=== PATIENT | male | born 2000 | race African-American/Black ===

== ENCOUNTER 2021-04-21 21:13 | Emergency (ER) | payer OTHER, SELFPAY ==
[2021-04-21 21:20] VITALS: BP 144/69; PULSE 80; RESP 16; TEMP 36.7; O2SAT 98; BMI 27.8
[2021-04-21 21:35] LABS: Glucose Urine UA NEG (NEG); Leukocyte Esterase Urine 1+ (NEG); Nitrite Urine NEG (NEG); UACC Culture Trigger YES; Urine Blood NEG (NEG); Urine Ketones NEG (NEG); Urine Protein NEG (NEG-TRACE)
[2021-04-21 21:37] LABS: Appearance Urine CLEAR; Color Urine YELLOW
--- NOTE | 2021-04-21 21:49 | ED_ITS ---
HPI - Male Genitourinary General Chief complaint: Urogenital-Male Stated complaint: DIFF URINATING Time Seen by Provider: 04/21/21 21:49 History of Present Illness HPI Narrative: 20-year-old male presents today with having pain in his penis worse with urinating. Patient is sexually active did not use protection. He got a text notifying him that his partner may have STD. Patient denies any fever chills. No systemic complaints. No testicular pain. Patient from home. Related Data Previous Rx's Medication Instructions Recorded doxycycline hyclate 100 mg PO BID 7 Days #14 cap 04/21/21 Allergies Allergy/AdvReac Type Severity Reaction Status Date / Time No Known Allergies Allergy Verified 04/21/21 21:21 Review of Systems Review of Systems: Positive pain on urination. Positive frequency Yes all other systems are reviewed and are negative [facility] Past Medical History Attestation statement: The following information was validated with the patient. Medical History Patient denies significant medical history Social History Social History Advance Directives: No Advance Directives Information Provided: Yes Physical Exam Vital Signs: Vital Signs: Last Vital Signs Temp 98.0 F 04/21/21 21:20 Pulse 80 04/21/21 21:20 Resp 16 04/21/21 21:20 BP 144/69 H 04/21/21 21:20 Pulse Ox 98 04/21/21 21:20 Body Mass Index 27.8 Appearance: Alert. Oriented X3. No acute distress. Eyes: Pupils equal, round and reactive to light. ENT: Pharynx normal. Neck: Normal inspection. Neck supple. No lymph nodes noted. No crepitus CVS: Normal heart rate and rhythm. Pulses normal. Normal S1 and S2 Respiratory: No respiratory distress. Breath sounds normal. No Wheezing. No rales Abdomen: Soft and nontender. No rigidity. No distention. good BS x4 Skin: Skin warm and dry. Normal skin color. Normal skin turgor. Extremities: No lower extremity edema. Neurovascular intact to all extremities. No Lacerations. No Rash Neuro: Oriented X 3. No motor deficit. No sensory deficit. Moving all extermities. No slurred speech MDM - Male Genitourinary MDM Narrative Medical decision making narrative: Patient's postvoid bladder scan was grossly negative. Positive dysuria. Will send off a GC chlamydia. Will treat patient with Rocephin 500 mg IM. Will addition give doxycycline for 1 week. Close follow-up on an outpatient basis. In stable condition. Differential Diagnosis Differential diagnosis: Likely urethritis and epididymitis Medical Records Attestation: I reviewed the patient's medical records. Lab Data Labs: Lab Results 04/21/21 Range/Units 21:25 Urine Color YELLOW Urine Appearance CLEAR Urine pH 7.0 (5.0-8.0) Ur Specific [place] 1.010 (1.005-1.025) Urine Protein NEG (NEG-TRACE) MG/DL Urine Glucose (UA) NEG (NEG) MG/DL Urine Ketones NEG (NEG) MG/DL Urine Blood NEG (NEG) Urine Nitrite NEG (NEG) Ur Leukocyte Esterase 1+ H (NEG) Discharge Plan Discharge Clinical Impression: Urethritis Patient Disposition: Home, Self-Care Instructions: Sexually Transmitted Diseases (ED), Safe Sex Practices for Adolescents (ED) Prescriptions: New doxycycline hyclate 100 mg capsule 100 mg PO BID 7 Days Qty: 14 RF: 0 Referrals: Physician,None [Primary Care Provider] - 2 days (Please get your partner tested and treated. Your given Rocephin and doxycycline today)
[2021-04-21 21:50] LABS: Bacteria Urine 1+ /LPF; Squamous Epithelial Cell Urine 1+ /LPF
[2021-04-21] MEDS: cefTRIAXone sodium 500 MG, Lidocaine HCl 1 % MPF 1 ML IM (22:12)
[2021-04-22 13:04] LABS: CT PCR DETECTED (Not Detect.); NG PCR DETECTED (Not Detect.)
== END 2021-04-21 22:21 | disposition home or self-care (01) ==
PROVIDERS: Emergency Provider Emergency Medicine Emergency Medical Services
DX: N34.2 Other urethritis (principal); Z20.2 Contact with and (suspected) exposure to infections with a predominantly sexual mode of transmission
CPT/HCPCS: 81001; 81003; 87086; 87491; 87591; 96372; 99283; 99284; J0696

== ENCOUNTER 2021-09-28 14:09 | Emergency (ER) | payer OTHER, SELFPAY ==
[2021-09-28 14:25] VITALS: BP 136/85; PULSE 87; RESP 18; TEMP 36.3; O2SAT 98; BMI 27.8
--- NOTE | 2021-09-28 14:42 | ED.MALEGU ---
HPI - Male Genitourinary General Chief complaint: Urogenital-Male Stated complaint: STD test Time Seen by Provider: 09/28/21 14:42 Source: patient Mode of arrival: ambulatory Limitations: no limitations History of Present Illness HPI Narrative: 21-year-old male previously healthy here with reports of exposure to chlamydia. Patient tells me his sexual partner called him this morning and told him she is positive for chlamydia. He has no symptoms. Related Data Previous Rx's Medication Instructions Recorded doxycycline hyclate 100 mg capsule 100 mg PO BID 7 Days #14 cap 04/21/21 Allergies Allergy/AdvReac Type Severity Reaction Status Date / Time No Known Allergies Allergy Verified 09/28/21 14:24 Review of Systems Review of Systems: Yes all other systems are reviewed and are negative Constitutional: Constitutional: Reports no additional constitutional complaints, Denies body ache(s), Denies chills, Denies fever(s), Denies headache(s) and Denies weakness Eyes: Eyes: Reports no additional eye complaints and Denies change in vision ENT: Reports system reviewed and no additional complaints, except as documented, Denies dizziness, Denies headache(s), Denies nasal congestion, Denies nasal discharge and Denies neck pain Cardiovascular: Cardiovascular: Reports no additional cardiovascular complaints, Denies chest pain, Denies leg edema and Denies dyspnea Respiratory: Respiratory: Reports no additional respiratory complaints, Denies cough and Denies dyspnea Gastrointestinal: Gastrointestinal: Reports no additional gastrointestinal complaints, Denies abdominal pain, Denies diarrhea, Denies nausea and Denies vomiting Genitourinary: Genitourinary: Denies penile discharge, Denies testicular pain and Denies urinary incontinence Musculoskeletal: Musculoskeletal: Reports no additional musculoskeletal complaints, Denies back pain, Denies arthralgias, Denies joint swelling, Denies neck pain, Denies numbness and Denies tingling Integumentary/Breasts: Skin/Breast: Reports system reviewed and no additional complaints, except as docu and Denies rash Neurologic: Reports system reviewed and no additional complaints, except as documented, Denies Abnormal speech present, Denies dizziness, Denies headache(s), Denies numbness, Denies tingling and Denies weakness PMFSH Past Medical History Attestation statement: The following information was validated with the patient. Source: old records reviewed and nursing notes reviewed Medical History Patient denies significant medical history Social History Social History Advance Directives: No Advance Directives Information Provided: No Physical Exam Vital Signs: Vital Signs: Last Vital Signs Temp 97.4 F 09/28/21 14:25 Pulse 87 09/28/21 14:25 Resp 18 09/28/21 14:25 BP 136/85 09/28/21 14:25 Pulse Ox 98 09/28/21 14:25 BMI result Body Mass Index 27.8 Const: General: cooperative, healthy appearing, comfortable and no acute distress Orientation/consciousness: patient oriented x3 Limitations: no limitations HENMT: Head: Yes normal to inspection Ears: hearing grossly normal bilaterally General nose exam: Normal external nose present Face and sinus: Yes normal facial exam Mouth: Normal oral and palatal mucosa present Throat: Yes posterior oropharynx normal Eyes: General: appearance normal, both eyes and all related structures Pupils: Equal, round and reactive pupils present Neck: Neck: Yes normal visual inspection Chest: Chest palpation & inspection: normal inspection of the chest Resp: Effort & Inspection: normal respiratory effort Auscultation: clear to auscultation bilaterally Cardio: Rate: regular rate Rhythm: regular rhythm Peripheral pulses: Peripheral pulses 2+ throughout GI: Inspection: Yes normal to inspection Palpation (GI): Soft to palpation and nontender Auscultation: normal bowel sounds : Other: Deferred Back/Spine/Pelvis: Thoracic/Lumbar Spine: thoracic and lumbar spine normal to inspection Skin: General skin exam: no rashes or lesions noted Neuro: General: patient oriented x3, no focal motor deficits and normal sensation to monofilament Cranial nerves: Yes Equal, round and reactive pupils present Cognition (Neuro): normal cognition Speech: No Abnormal speech present Gait exam (Neuro): Normal gait present Motor exam (neuro): 5/5 motor strength present throughout Extrem: General: Yes normal to inspection Course Course Course Narrative: 21-year-old male here asymptomatic after exposure to chlamydia. Will send testing for gonorrhea and chlamydia. Patient treated prophylactically with ceftriaxone 500 mg IM and azithromycin 1 g p.o.. Reviewed worrisome signs and symptoms of when to return to the emergency department. Comfortable discharge home. [facility] - Male Genitourinary Medical Records Attestation: I reviewed the patient's medical records. Lab Data Attestation: I reviewed the patient's lab results. Labs: Lab Results 09/28/21 Range/Units 14:36 Urine Color YELLOW Urine Appearance CLEAR Urine pH 7.0 (5.0-8.0) Ur Specific [place] 1.020 (1.005-1.025) Urine Protein NEG (NEG-TRACE) MG/DL Urine Glucose (UA) NEG (NEG) MG/DL Urine Ketones NEG (NEG) MG/DL Urine Blood NEG (NEG) Urine Nitrite NEG (NEG) Ur Leukocyte Esterase NEG (NEG) Discharge Plan Discharge Clinical Impression: Concern about STD in male without diagnosis Patient Disposition: Home, Self-Care Instructions: Sexually Transmitted Diseases (ED) Additional Instructions: Your tested for gonorrhea and chlamydia. You told me that your partner has chlamydia so you received treatment of an injection of an antibiotic and a 1 time dose of oral antibiotics here We will call you tomorrow if your test is positive If your test is positive you should abstain from sexual intercourse for 7 days. Then get retested at [facility] for STDs Use condoms Prescriptions: No Action doxycycline hyclate 100 mg capsule 100 mg PO BID 7 Days Qty: 14 RF: 0 Referrals: Physician,None [Primary Care Provider] - 2 days Interventions: ED Discharge Assessment Last Done: 09/28/21 15:06 Discharge Date/Time: 09/28/21 15:06
[2021-09-28 14:45] LABS: Appearance Urine CLEAR; Color Urine YELLOW; Glucose Urine UA NEG (NEG); Leukocyte Esterase Urine NEG (NEG); Nitrite Urine NEG (NEG); Urine Blood NEG (NEG); Urine Ketones NEG (NEG); Urine Protein NEG (NEG-TRACE)
[2021-09-28] MEDS: Azithromycin 500 MG TABLET 1000 MG PO (14:58)
[2021-09-28] MEDS: cefTRIAXone sodium 500 MG, Lidocaine HCl 1 % MPF 1 ML IM (14:59)
[2021-09-30 11:40] LABS: CT PCR DETECTED (Not Detect.); NG PCR NOT DETECTED (Not Detect.)
== END 2021-09-28 15:06 | disposition home or self-care (01) ==
LOC: HO.ED 14:53
PROVIDERS: Emergency Provider Emergency Medicine
DX: Z20.2 Contact with and (suspected) exposure to infections with a predominantly sexual mode of transmission (principal); Z79.899 Other long term (current) drug therapy
CPT/HCPCS: 81003; 87491; 87591; 96372; 99283; 99284; J0696

== ENCOUNTER 2021-12-13 13:52 | Emergency (ER) | payer OTHER, SELFPAY ==
[2021-12-13 14:25] VITALS: BP 132/65; PULSE 83; RESP 18; TEMP 37; O2SAT 98; BMI 30.7
[2021-12-13 14:31] LABS: Appearance Urine HAZY; Color Urine YELLOW; Glucose Urine UA NEG (NEG); Leukocyte Esterase Urine NEG (NEG); Nitrite Urine NEG (NEG); Urine Blood NEG (NEG); Urine Ketones NEG (NEG); Urine Protein NEG (NEG-TRACE)
--- NOTE | 2021-12-13 14:31 | ED.MALEGU ---
HPI - Male Genitourinary General Chief complaint: Urogenital-Male Stated complaint: STD CHECK Time Seen by Provider: 12/13/21 14:31 Source: patient Limitations: no limitations History of Present Illness HPI Narrative: Patient presents to the ER requesting to be tested for chlamydia and gonorrhea. Patient denies any symptoms at this time patient has had chlamydia and gonorrhea in the past. Patient was tested positive for chlamydia in 2020September 28. Patient repeats he has no symptoms and does not want to be treated at this time just wants to be tested. Patient has no other complaints at this time. Patient encouraged to practice safe sex Related Data Previous Rx's Medication Instructions Recorded doxycycline hyclate 100 mg capsule 100 mg PO BID 7 Days #14 cap 04/21/21 doxycycline hyclate 100 mg capsule 100 mg PO BID #20 cap 09/28/21 Allergies Allergy/AdvReac Type Severity Reaction Status Date / Time No Known Allergies Allergy Verified 12/13/21 14:25 Review of Systems Constitutional: Constitutional: Denies chills, Denies fatigue and Denies fever(s) ENT: Denies sore throat Gastrointestinal: Gastrointestinal: Denies diarrhea, Denies nausea and Denies vomiting Genitourinary: Comments: No penile discharge no dysuria Musculoskeletal: Musculoskeletal: Denies back pain Endocrine: Endocrine: Denies fatigue PMFSH Past Medical History Medical History Patient denies significant medical history Social History Social History Advance Directives: No Advance Directives Information Provided: No Physical Exam Vital Signs: Vital Signs: Last Vital Signs Temp 98.6 F 12/13/21 14:25 Pulse 83 12/13/21 14:25 Resp 18 12/13/21 14:25 BP 132/65 12/13/21 14:25 Pulse Ox 98 12/13/21 14:25 BMI result Body Mass Index 30.7 vital signs have been reviewed as normal and appeared to be correct. Blood pressure normal. Heart rate normal. Respiration rate normal. Temperature normal. Oxygen saturation normal. Appearance: Alert. Oriented X3. No acute distress. Head: Normal external exam. Normocephalic. Atraumatic. Eyes: PERRLA. EOMI. Conjunctiva and sclera normal. Eyelids normal. ENT: Pharynx normal. Uvula midline. Moist mucous membranes. No trismus noted. No drooling noted. No muffled voice noted. Abdomen: Soft nontender no rebound or guarding positive bowel sounds Back: Full range of motion noted. Skin: Skin warm and dry. Extremities: Ambulatory moving all extremities : Exam refused Neuro: Oriented X 3. No motor deficit. No sensory deficit. Reflexes normal. Course Course Course Narrative: Chlamydia Gonorrhea Cystitis UA sent for chlamydia and gonorrhea patient informed he will be called only positive results patient does not want any treatment at this time is he has no symptoms. MDM - Male Genitourinary Lab Data Labs: Lab Results 12/13/21 Range/Units 14:15 Urine Color YELLOW Urine Appearance HAZY Urine pH 7.0 (5.0-8.0) Ur Specific [place] 1.020 (1.005-1.025) Urine Protein NEG (NEG-TRACE) MG/DL Urine Glucose (UA) NEG (NEG) MG/DL Urine Ketones NEG (NEG) MG/DL Urine Blood NEG (NEG) Urine Nitrite NEG (NEG) Ur Leukocyte Esterase NEG (NEG) Discharge Plan Discharge Clinical Impression: Concern about STD in male without diagnosis Patient Disposition: Home, Self-Care Instructions: Safe Sex Practices (ED) Additional Instructions: They will call you with positive results Prescriptions: No Action doxycycline hyclate 100 mg capsule 100 mg PO BID 7 Days Qty: 14 0RF doxycycline hyclate 100 mg capsule 100 mg PO BID Qty: 20 0RF
--- NOTE | 2021-12-13 14:39 | PC.NURSE ---
provider into assess pt. pt refusing any treatment at this time. Reviewed discharge instructions.
[2021-12-13 17:16] LABS: CT PCR NOT DETECTED (Not Detect.); NG PCR NOT DETECTED (Not Detect.)
== END 2021-12-13 14:46 | disposition home or self-care (01) ==
LOC: HO.ED 14:37
PROVIDERS: Emergency Provider Emergency Medicine
DX: Z20.2 Contact with and (suspected) exposure to infections with a predominantly sexual mode of transmission (principal)
CPT/HCPCS: 81003; 87491; 87591; 99282; 99283

== ENCOUNTER 2022-09-12 14:49 | Outpatient (REF) | payer OTHER, SELFPAY ==
[2022-09-12 15:21] LABS: COVID-19 Test Positive (Negative); IDNOW Serial# 9DB6401D
== END 2022-09-12 14:50 | disposition home or self-care (01) ==
LOC: HO.LAB 14:49
PROVIDERS: Visit Provider Internal Medicine
DX: Z20.822 Contact with and (suspected) exposure to COVID-19 (principal)
CPT/HCPCS: 87635; C9803

== ENCOUNTER 2023-11-12 17:17 | Emergency (ER) | payer OTHER, SELFPAY ==
[2023-11-12 18:02] VITALS: BP 0/0; PULSE 84; RESP 16; TEMP 36.6; O2SAT 98
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
--- OUTSIDE RECORDS SUMMARY | 2023-11-12 18:13 | XMS_ITS | Continuity of Care Document ---
Author Name Unknown Organization [facility] Address [address] [place] [address]- Care Team Providers Care Lock Up Worker Name Role Phone Not on Staff, PCP Primary Care Physician Unavail able Encounter 11/21/20 - 12/12/20 [facility] [address] [place] [address]- Discharge Disposition: GOALS MET Allergies, Adverse Reactions, Alerts Substance Reaction Severity [...] opioid drug. Start Date: 10/07/20 Status: Ordered Flomax 0.4 mg oral capsule 0.4 mg, 1, capsule, By Mouth, 2 times a day, # 60 capsule, Refills 0, Tot. Refills 0, Maintenance, 10/07/20 8:24:00 EST, Print Requisition, Partial fill upon patient request if the prescription is for a schedule II opioid drug. Start Date: 10/07/20 Status: Ordered Problem List Condition Effective Dates Status Health Status Inform ant Attention deficit hyperactiv ity disorder(Confirmed) Active Behavior management problem(Confirmed) Active Social History Social History Type Response Smoking Status Current every day susy escobar; Tobacco user in household: Yes; Type: Cigarettes; Other: mother smokes; entered on: 02/06/17 Sex
--- OUTSIDE RECORDS SUMMARY | 2023-11-12 18:13 | XMS_ITS | Continuity of Care Document ---
Author Name Unknown Organization [facility] ter Address [address] [place] [address]- Care Team Providers Care Shoe Repairer Helper Name Role Phone Not on Staff, PCP Primary Care Physician Unavail able [facility] Date(s): 10/05/20 - 11/04/[address] [address]- Attending Physician: Not on Staff, Attending MD Admitting Physician: Not on Staff, Admitting MD Referring Physician: Not on Staff, Referring [...]
--- OUTSIDE RECORDS SUMMARY | 2023-11-12 18:13 | XMS_ITS | Continuity of Care Document ---
Author Name Unknown Organization [facility] Address [address] [place] [address]- Care Team Providers Care Senior Power Plant Operator Name Role Phone Not on Staff, PCP Primary Care Physician Unavail able Encounter [facility] Date(s): 06/22/20 - 06/22/[address] [address]- [facility] Discharge Disposition: A-D/C Walkout Attending Physician: Not on Staff, Attending MD [...] CR Capsule Start Date: 09/18/17 Status: Ordered Problem List Condition Effective Dates Status Health Status Inform ant Attention deficit hyperactiv ity disorder(Confirmed) Active Behavior management problem(Confirmed) Active Vital Signs Most recent to oldest [Reference Range]: 1 2 Oxygen Saturation [94-100 %] 100 % (06/22/20 6:05 PM) 98 % (06/22/20 5:53 PM) Pulse Rate [55-90 bpm] 76 bpm (06/22/20 6:05 PM) 81 bpm (06/22/20 5:53 PM) Blood Pressure [90-138/55-84 mm Hg] 132/ 64mm Hg (06/22/20 6:05 PM) Respiratory Rate [16-30 br/min] 16 br/mi n (06/22/20 6:05 PM) Temperature [96.8-100.4 DegF] 98.0 DegF (06/22/20 6:05 PM) Mode of Delivery (Oxygen) Room air (06/22/20 6:05 PM) Room air (06/22/20 5:53 PM) Blood pressure sites Arm, left (06/22/20 6:05 PM) Temperature Route Oral (06/22/20 6:05 PM) Social History Social History Type Response Smoking Status Current every day susy escobar; Tobacco user in household: Yes; Type: Cigarettes; Other: mother smokes; entered on: 02/06/17 Sex
--- OUTSIDE RECORDS SUMMARY | 2023-11-12 18:13 | XMS_ITS | Continuity of Care Document ---
Author Name Unknown Organization [facility] ter Address [address] [place] [address]- Care Team Providers Care Information Manager Name Role Phone Not on Staff, PCP Primary Care Physician Unavail able [facility]counter [facility] Date(s): 02/07/20 - 02/07/[address] [address]- [facility] Encounter Diagnosis AP (abdominal pain)(Final) - 02/07/20 Possible exposure to STD(Final) - 02/07/20 Discharge Disposition: A-D/C Home Attending Physician: Justyn Medley DO Admitting Physician: Justyn Medley DO Referring Physician: Not on Staff, Referring MD [...] to oldest [Reference Range]: 1 2 3 Oxygen Saturation [94-100 %] 100 % (02/07/20 6:36 PM) 98 % (02/07/20 4:34 PM) 98 % (02/07/20 4:31 PM) Pulse Rate [55-90 bpm] 90 bpm (02/07/20 6:36 PM) 102 bpm *H* (02/07/20 4:34 PM) 113 bpm *H* (02/07/20 4:31 PM) Blood Pressure [90-138/55-84 mm Hg] 128/57mm Hg (02/07/20 6:36 PM) 150/81mm Hg *H* (02/07/20 4:34 PM) Respiratory Rate [16-30 br/min] 16 br/min (02/07/20 6:36 PM) 17 br/min (02/07/20 4:34 PM) Temperature [96.8-100.4 DegF] 98.7 DegF (02/07/20 6:36 PM) 99.8 DegF (02/07/20 4:34 PM) Mode of Delivery (Oxygen) Room air (02/07/20 6:36 PM) Room air (02/07/20 4:34 PM) Room air (02/07/20 4:31 PM) Blood pressure sites Arm, right (02/07/20 6:36 PM) Temperature Route Oral (02/07/20 6:36 PM) Oral (02/07/20 4:34 PM) Social History Social History Type Response Smoking Status Current every day susy escobar; Tobacco user in household: Yes; Type: Cigarettes; Other: mother smokes; entered on: 02/06/17 Sex
--- OUTSIDE RECORDS SUMMARY | 2023-11-12 18:14 | XMS_ITS | Continuity of Care Document ---
Author Name Unknown Organization [facility] Address [address] [place] [address]- Care Team Providers Care Physician Ophthalmologist Name Role Phone Not on Staff, PCP Primary Care Physician Unavail able Encounter 10/08/20 - 11/07/20 [facility] [address] [place] [address]- Discharge Disposition: CLIENT NO LONGER REQUIRES SKILLED CARE Allergies, Adverse Reactions, Alerts Substance Reaction Severity [...]
--- NOTE | 2023-11-12 18:17 | ED.GENADULT ---
HPI - General Adult General Chief complaint: Skin/Abscess/Foreign Body Stated complaint: Rash on side, spreading Time Seen by Provider: 11/12/23 18:09 Source: patient Mode of arrival: ambulatory Limitations: no limitations History of Present Illness HPI narrative: 23 yold male with pmh of ezcecma presents to the ED for dry patches rash for couple of weeks. Patient denies any swelling of lips/tongue/face/eyes, chest pain or shortness of breath. Patient states no sensation of throat closing. patient states mild itchiness. patient states no bleeding from any orifices. Related Data Previous Rx's Medication Instructions Recorded doxycycline hyclate 100 mg capsule 100 mg PO BID cough 7 days #14 caps 04/21/21 doxycycline hyclate 100 mg capsule 100 mg PO BID #20 caps 09/28/21 hydrocortisone 1 % topical cream 1 appl topical BID PRN rash 2 11/12/23 weeks #28.4 grams Allergies Allergy/AdvReac Type Severity Reaction Status Date / Time No Known Allergies Allergy Verified 12/13/21 14:25 Review of Systems Review of Systems: dry patches on torso and back Yes all other systems are reviewed and are negative [facility] Past Medical History Medical History Patient denies significant medical history Social History Social History Advance Directives: No Advance Directives Information Provided: No Physical Exam ED Vital Signs: Vital Signs - 24 hr 11/12/23 18:02 Temperature 97.8 F Pulse Rate 84 Respiratory Rate 16 Blood Pressure 0/0 L Pulse Oximetry 98 Oxygen Delivery Method Room Air BMI result Body Mass Index 30.0 Const General: cooperative, healthy appearing, comfortable, no acute distress, well developed, alert and awake Orientation/consciousness: oriented to person, oriented to place, oriented to time and patient oriented x3 HENMT Other: negative for any facial swelling, lip swelling, tongue swelling, or uvula swelling. Head: Yes normal to inspection, Yes No palpable skull fracture present, Yes normocephalic and Yes atraumatic Eyes General: appearance normal, both eyes and all related structures Neck Neck: Yes normal visual inspection, Yes full ROM, Yes no lymphadenopathy, Yes no meningeal signs, Yes trachea midline, Yes supple, No anterior neck swelling and No tender Chest Chest/axillae images: 1. dry eczema rash 2. dry ezcecma rash Resp Effort & Inspection: normal respiratory effort and able to speak in complete sentences Auscultation: clear to auscultation bilaterally Cardio Jugular venous distension: no JVD Heart sounds: S1 normal heart sound present and S2 normal heart sound present GI Inspection: Yes normal to inspection Palpation (GI): Soft to palpation, not firm, nontender, no guarding and not rigid General: Yes no CVA tenderness Back/Spine/Pelvis Back: no CVA tenderness and No back tenderness Skin Other: ezcema rash General skin exam: elasticity normal and turgor normal Neuro General: oriented to person, oriented to place, oriented to time, patient oriented x3, gait normal, tone normal, moves all extremities, Normal light touch and pain sensation, no meningeal signs and no focal motor deficits Extrem Shoulder/upper arm images: 1. dry excema rash 2. dry eczema rash 3. dry eczema rash 4. dry eczema rash Psych Appearance: grossly normal, well kempt and not disheveled Course Course Course Narrative: RME: 23 yold male presents to the ED for rash with dry patches. history of ezcema Medical Decision Making Medical Decision Making MDM Narrative: 23 yold male with pmh of eczema with dry patches that somewhat itches. negative for signs of allergic reaction, anaphylaxix, petechiae, cellulitits, griffith shivani, shingles, necrotizing facscitis, or scabies. Differential Diagnosis Differential Diagnoses: The differential diagnosis associated with the presentation includes (dermatitis, ezcema, ) Admission/Observation Consideration of admission/observation: Escalation of care including admission/observation considered External Record Review External record reviewed: Other (prior visits) Prescription Management I considered prescription management with: Other (hydrocortisone) Discharge Plan Discharge Clinical Impression: Eczema, Rash Patient Disposition: Home, Self-Care Instructions: Acute Rash (ED), Dermatitis (ED) Additional Instructions: Recommend follow-up with your primary care provider. Return to the ED immediately for any worsening rash, itchiness, lip swelling, bluish black discoloration, chest pain, shortness of breath, fever, chills, redness or any other concerning symptoms. Prescriptions: New hydrocortisone 1 % cream 1 appl topical BID PRN (Reason: rash) 14 Days Qty: 28.4 0RF No Action doxycycline hyclate 100 mg capsule 100 mg PO BID 7 Days Qty: 14 0RF doxycycline hyclate 100 mg capsule 100 mg PO BID Qty: 20 0RF Stand Alone Forms: Work/School Release Interventions: ED Discharge Assessment Last Done: 11/12/23 18:27 Discharge Date/Time: 11/12/23 18:27 Print Language: Telugu
== END 2023-11-12 18:27 | disposition home or self-care (01) ==
PROVIDERS: Emergency Provider Emergency Medicine
DX: L30.9 Dermatitis, unspecified (principal); R21 Rash and other nonspecific skin eruption
CPT/HCPCS: 99282; 99283

== ENCOUNTER 2024-03-23 03:43 | Emergency (ER) | payer OTHER, SELFPAY ==
[2024-03-23 03:45] VITALS: BP 112/62; PULSE 67; RESP 18; TEMP 36.1; O2SAT 98; BMI 32.1
[2024-03-23 06:03] VITALS: BP 105/58; PULSE 51; RESP 16; O2SAT 99
--- NOTE | 2024-03-23 06:39 | ED_ITS ---
HPI - Eye Problem General Chief complaint: Eye Problems Stated complaint: [place] eye Time Seen by Provider: 03/23/24 06:33 Source: patient Mode of arrival: ambulatory Limitations: no limitations History of Present Illness ED Provider: Gamaliel Mederos PA-C HPI Narrative: 23-year-old male presents for evaluation of itchy red eyes +discharge in both eyes. Left eye has been irritated since Friday, right eye started earlier this morning. He woke up with yellow discharge/crusting of both eyes, reports they are itchy. Tried some over the counter eye drops without relief. Denies vision changes. Denies possible foreign body. chief complaint: eye redness Onset (ago): day(s) (3) Onset description: awoke with symptoms Duration: constant Location: both eyes Eye Symptoms: redness, itching and discharge Mechanism: none Associated symptoms: none Treatments Prior to Arrival: OTC eye drops Related Data Previous Rx's ?Medication ?Instructions ?Recorded doxycycline hyclate 100 mg capsule 100 mg PO BID cough 7 days #14 caps 04/21/21 doxycycline hyclate 100 mg capsule 100 mg PO BID #20 caps 09/28/21 hydrocortisone 1 % topical cream 1 appl topical BID PRN rash 2 11/12/23 weeks #28.4 grams polymyxin B sulfate 10,000 1 drp ophthalmic (eye) Q3H 7 days 03/23/24 unit-trimethoprim 1 mg/mL eye drops #10 mL Allergies Allergy/AdvReac Type Severity Reaction Status Date / Time No Known Allergies Allergy Verified 03/23/24 03:47 Review of Systems Review of Systems: Yes all other systems are reviewed and are negative PMFSH Past Medical History Medical History Patient denies significant medical history Social History Social History Advance Directives: No Advance Directives Information Provided: Yes Do you have a plan to hurt others: No Plan Physical Exam Vital Signs: Vital Signs: Last Vital Signs Temp 97.8 F 03/23/24 07:01 Pulse 51 03/23/24 07:01 Resp 16 03/23/24 07:01 BP 105/58 L 03/23/24 07:01 Pulse Ox 99 03/23/24 07:01 O2 Del Method Room Air 06/11/24 07:01 BMI result Body Mass Index 32.1 Appearance: Alert. Oriented X3. No acute distress. Head: normocephalic, atraumatic. Eyes: Pupils equal, round and reactive to light. Bilateral conjunctival injection, bilateral yellow tinged exudate. No obvious corneal lesion. Neck: Normal inspection. Neck supple. Respiratory: No respiratory distress. Extremities: No lower extremity edema. No joint swelling. Neuro/psych: Oriented X 3. CN II-XII grossly intact. Normal speech and cognition. Medical Decision Making Medical Decision Making MDM Narrative: 23-year-old male presents for evaluation of itchy red eyes +discharge in bilateral eyes. Woke up with yellow crusted eyelid on the left eye since Friday, this morning both eyelids. On exam there is bilateral conjunctival injection with mild yellowish discharge consistent with bacterial conjunctivitis. Patient denies concern for foreign body and there is no obvious corneal lesion on exam, suspicion for foreign body or corneal abrasion or ulcer is low. Differential Diagnosis Differential Diagnoses: The differential diagnosis associated with the presentation includes bacterial conjunctivitis, viral conjunctivitis, foreign body Prescription Management I considered prescription management with: Pain Medication and Antibiotic Critical Care Time Critical Care Time Critical Care Time: No Discharge Plan Discharge Clinical Impression: Bacterial conjunctivitis Patient Disposition: Home, Self-Care Instructions: Conjunctivitis (ED) Additional Instructions: use the prescribed eye drops every 3 hours for 1 week use warm compresses on the eyes several times per day to help w/ discharge and discomfort take motrin and tylenol as needed for pain Prescriptions: New polymyxin B sulf-trimethoprim 10,000 unit- 1 mg/mL drops 1 drp ophthalmic (eye) Q3H 7 Days Qty: 10 1RF Rx Instructions: while awake; do not exceed 6 doses in 24 hours No Action doxycycline hyclate 100 mg capsule 100 mg PO BID 7 Days Qty: 14 0RF doxycycline hyclate 100 mg capsule 100 mg PO BID Qty: 20 0RF hydrocortisone 1 % cream 1 appl topical BID PRN (Reason: rash) 14 Days Qty: 28.4 0RF Stand Alone Forms: Work/School Release Interventions: ED Discharge Assessment Last Done: 03/23/24 07:01 Discharge Date/Time: 03/23/24 07:01 Print Language: Kiswahili
[2024-03-23 07:01] VITALS: BP 105/58; PULSE 51; RESP 16; TEMP 36.6; O2SAT 99
== END 2024-03-23 07:01 | disposition home or self-care (01) ==
PROVIDERS: Emergency Provider Student in an Organized Health Care Education/Training Program
DX: H10.33 Unspecified acute conjunctivitis, bilateral (principal); H57.13 Ocular pain, bilateral
CPT/HCPCS: 99283

== ENCOUNTER 2024-03-25 10:20 | Emergency (ER) | payer OTHER, SELFPAY ==
[2024-03-25 10:24] VITALS: BP 143/91; PULSE 89; RESP 20; TEMP 36.3; O2SAT 98; BMI 31.4
[2024-03-25 12:00] VITALS: BP 128/80; PULSE 81; TEMP 36.9; O2SAT 99
--- NOTE | 2024-03-25 12:04 | ED.EYEPROB ---
HPI - Eye Problem General Chief complaint: Eye Problems Stated complaint: eye issue not getting better seen 2 days ago Time Seen by Provider: 03/25/24 12:03 Source: patient Mode of arrival: ambulatory Limitations: no limitations History of Present Illness ED Provider: USMAN Jesus HPI Narrative: Patient is a 23-year-old male presenting to the ED with complaint of ongoing bilateral eye redness and irritation not improved with antibiotic drops prescribed here on 03/23. States that he has been using the drops every 3 hours as prescribed without improvement. Symptoms have been present for one week total. States at onset of symptoms he also had a mild sore throat and chills/sweats which have since resolved. He denies any pain with eye movements, denies any changes in vision. chief complaint: eye redness Onset (ago): week(s) Onset description: awoke with symptoms Duration: constant Location: both eyes Eye Symptoms: burning, redness and itching Context: recent URI Associated symptoms: none Treatments Prior to Arrival: other Related Data Previous Rx's ?Medication ?Instructions ?Recorded doxycycline hyclate 100 mg capsule 100 mg PO BID cough 7 days #14 caps 04/21/21 doxycycline hyclate 100 mg capsule 100 mg PO BID #20 caps 09/28/21 hydrocortisone 1 % topical cream 1 appl topical BID PRN rash 2 11/12/23 weeks #28.4 grams polymyxin B sulfate 10,000 1 drp ophthalmic (eye) Q3H 7 days 03/23/24 unit-trimethoprim 1 mg/mL eye drops #10 mL Allergies Allergy/AdvReac Type Severity Reaction Status Date / Time No Known Allergies Allergy Verified 03/25/24 10:26 Review of Systems Review of Systems: As per HPI. Yes all other systems are reviewed and are negative Constitutional: Constitutional: Reports as per HPI PMF Past Medical History Medical History Patient denies significant medical history Physical Exam Vital Signs: Vital Signs: Last Vital Signs Temp 98.5 F 03/25/24 12:00 Pulse 81 03/25/24 12:00 Resp 20 03/25/24 10:24 BP 128/80 03/25/24 12:00 Pulse Ox 99 03/25/24 12:00 O2 Del Method Room Air 03/25/24 12:00 BMI result Body Mass Index 31.4 Vital signs have been reviewed and appear to be correct. Blood pressure normal. Heart rate normal. Respiratory rate normal. Temperature normal. Oxygen saturation normal. Const: General: cooperative, healthy appearing and no acute distress Orientation/consciousness: oriented to person, oriented to place, oriented to time and patient oriented x3 Limitations: no limitations HEENT: Head: Yes normocephalic and Yes atraumatic Ears: external ears normal General nose exam: Normal external nose present Face and sinus: Yes face symmetric Mouth: oropharynx normal and moist mucous membranes Throat: Yes uvula midline Eyes: Visual Crook: normal visual crook by confrontation Alignment and Position: alignment normal and position normal Periorbital: periorbital findings normal Conjunctivae: conjunctival abnormal bilateral conjunctival injection diffuse (bilateral); without chemosis and without discharge Pupils: Equal, round and reactive pupils present EOM: EOMs intact bilaterally Neck: Neck: Yes normal visual inspection and Yes supple Resp: Effort & Inspection: normal respiratory effort and able to speak in complete sentences Auscultation: clear to auscultation bilaterally Cardio: Rate: regular rate Rhythm: regular rhythm Heart sounds: S1 normal heart sound present and S2 normal heart sound present Skin: General skin exam: elasticity normal and turgor normal Neuro: General: oriented to person, oriented to place, oriented to time, patient oriented x3, moves all extremities, no focal motor deficits and CN's II-XI intact bilaterally Cranial nerves: Yes Equal, round and reactive pupils present Cognition (Neuro): normal cognition Extrem: General: Yes full ROM, Yes no pedal edema and Yes no calf tenderness Psych: Mental Status: mental status grossly normal Affect: normal affect Thought process: Normal thought process present Medical Decision Making Medical Decision Making MDM Narrative: Patient is a 23-year-old male presenting to the ED with complaint of ongoing bilateral eye redness and irritation not improved with antibiotic drops prescribed here on 03/23. On exam patient is awake, A+Ox3, VS WNL, afebrile, normal neurological exam without focal deficits, physical exam findings as above. Given reported symptoms and physical exam findings, initial differential includes allergic versus bacterial versus viral conjunctivitis. Do not suspect corneal abrasion as patient denies injury and had normal Wood's lamp exam on 03/23 for same symptoms. Given that symptoms have not improved with antibiotic eyedrops, and patient reports viral symptoms at onset, feel likely viral conjunctivitis. Discussed with patient that he can continue to use the previously prescribed antibiotic eyedrops but that they will likely be of little effect. Advised him to use [id number]-uzr-[id number] lubricating eye drops, as well as an allergy medication such as cetirizine or loratadine. Did advise patient that if symptoms are related to a viral illness, they will slowly resolve over time but that there is no acute treatment. Return precautions discussed with patient at bedside. Patient verbalized understanding of and agreement with plan. Differential Diagnosis Differential Diagnoses: The differential diagnosis associated with the presentation includes As per MDM. External Record Review External record reviewed: Inpatient record, Office record and Outpatient record Discharge Plan Discharge Clinical Impression: Acute viral conjunctivitis of both eyes Patient Disposition: Home, Self-Care Instructions: Conjunctivitis (ED) Additional Instructions: You were evaluated in the emergency department today for eye redness and irritation not improved with antibacterial eyedrops. Your symptoms are likely due to a viral infection which is why they did not improve with antibiotic drops. Viral infections can not be treated with antibiotics and will resolve on their own with time. We recommend that you begin taking an schx-eif-mefmnzu allergy medications such as Zyrtec (cetirizine). You can also use ceew-sqx-igxsxeb lubricating eye drops. You can apply warm compresses to your eyes several times daily. Be sure to wash your hands thoroughly before and after touching your eyes. You can continue to use the antibiotic eyedrops prescribed to you but they will likely not improve your symptoms. Please follow-up with your primary care provider. Return to the emergency department if you develop increasing redness, swelling, drainage, fevers, changes in vision or any other concerning symptoms. Prescriptions: No Action doxycycline hyclate 100 mg capsule 100 mg PO BID 7 Days Qty: 14 0RF doxycycline hyclate 100 mg capsule 100 mg PO BID Qty: 20 0RF polymyxin B sulf-trimethoprim 10,000 unit- 1 mg/mL drops 1 drp ophthalmic (eye) Q3H 7 Days Qty: 10 1RF Rx Instructions: while awake; do not exceed 6 doses in 24 hours hydrocortisone 1 % cream 1 appl topical BID PRN (Reason: rash) 14 Days Qty: 28.4 0RF Referrals: Lamine Sotomayor [Physician] - Stand Alone Forms: Work/School Release Print Language: Estonian
[2024-03-25 12:41] VITALS: BP 128/80; PULSE 81; RESP 16; TEMP 36.9; O2SAT 99
== END 2024-03-25 12:41 | disposition home or self-care (01) ==
PROVIDERS: Emergency Provider Emergency Medicine
DX: H10.33 Unspecified acute conjunctivitis, bilateral (principal)
CPT/HCPCS: 99283

== ENCOUNTER 2025-06-22 09:52 | Emergency (ER) | payer OTHER, SELFPAY ==
--- NOTE | ~2025-06-22 | XR_ITS ---
EXAMINATION: XR fourth digit, LEFT HAND CLINICAL INFORMATION: 4th digit injury COMPARISON: None available. TECHNIQUE: PA view of the left hand. Oblique and lateral views fourth digit.. FINDINGS: The phalanges are intact. There is normal alignment. No acute cortical disruption. No subcutaneous emphysema. No metallic or radiopaque foreign body. PA view left hand demonstrates intact metacarpal bones, carpal bones and phalanges with normal alignment. XR/XR finger LT min 2V IMPRESSION: No acute fracture or dislocation. No metallic or radiopaque foreign body. Electronically signed by: José Luis France MD 06/22/2025 10:39 AM EDT
[2025-06-22 10:04] VITALS: BP 118/70; PULSE 69; RESP 18; TEMP 36.6; O2SAT 98
--- NOTE | 2025-06-22 10:20 | ED.EXTPRO ---
HPI - Extremity Problem General Chief complaint: Extremity Injury, Upper Stated complaint: L hand sprain? work inj Time Seen by Provider: 06/22/25 10:57 Source: patient Mode of arrival: ambulatory Limitations: no limitations History of Present Illness ED Provider: LADARIUS TREJO PA-C HPI Narrative: 25 year old right hand dominant male presents to the ED today for evaluation of left 4th finger pain s/p injury 1 week ago. Patient reports losing his balance at work, went to grab onto something with his left hand causing his left hand to bend backwards. Reports pain to his left 4th finger since, primarily with bending the finger. No numbness/tingling. No other injury/pain. Related Data Previous Rx's ?Medication ?Instructions ?Recorded doxycycline hyclate 100 mg capsule 100 mg PO BID cough 7 days #14 caps 04/21/21 doxycycline hyclate 100 mg capsule 100 mg PO BID #20 caps 09/28/21 hydrocortisone 1 % topical cream 1 appl topical BID PRN rash 2 11/12/23 weeks #28.4 grams polymyxin B sulfate 10,000 1 drp ophthalmic (eye) Q3H 7 days 03/23/24 unit-trimethoprim 1 mg/mL eye drops #10 mL Allergies Allergy/AdvReac Type Severity Reaction Status Date / Time No Known Allergies Allergy Verified 06/22/25 10:06 Review of Systems Review of Systems: Yes all other systems are reviewed and are negative PMFSH Past Medical History Attestation statement: The following information was validated with the patient. Source: old records reviewed and nursing notes reviewed Medical History Patient denies significant medical history Social History Social History Advance Directives: No Advance Directives Information Provided: Yes Do you have a plan to hurt others: No Plan Physical Exam Vital Signs: Vital Signs: Last Vital Signs Temp 97.8 F 06/22/25 11:24 Pulse 69 06/22/25 11:24 Resp 18 06/22/25 11:24 BP 118/70 06/22/25 11:24 Pulse Ox 98 06/22/25 11:24 O2 Del Method Room Air 06/22/25 11:24 BMI result Body Mass Index 30.0 vital signs stable General: Well appearing, in no acute distress. Skin: Warm, dry, intact. No rashes or lesions. Head: Normocephalic, atraumatic. Neck: Supple without LAD. FROM. Trachea midline.? Cardiac: Chest wall symmetric. RRR Lungs: Normal respiratory effort without accessory muscle use. CTA bilaterally Ext: +no obvious deformity/swelling/skin changes to left 4th digit. FROM intact to left 4th MCP, difficulty flexing/ fully extending PIP/DIP. finger strength intact. finger to thumb opposition intact. from intact to all other digits/ wrist. sensation intact. radial pulse intact. Neuro: AOx3. Normal speech. Ambulating with steady gait. Course Course Course Narrative: xrs negative for fracture. given difficulty/ pain on flexion, concern for tendon injury - will refer to ortho. finger splint applied. advised tylenol/motrin. Patient has remained stable throughout ED visit today. Discussed worrisome signs and symptoms and when to return to the ED. All questions answered at this time. Patient is agreeable with disposition and stable for discharge. Medical Decision Making Medical Decision Making MDM Narrative: 25 year old right hand dominant male presents to the ED today for evaluation of left 4th finger pain s/p injury 1 week ago. vitals stable. he is well appearing. on exam, no obvious deformity/swelling/skin changes to left 4th digit. FROM intact to left 4th MCP, difficulty flexing/ fully extending PIP/DIP. finger strength intact. finger to thumb opposition intact. from intact to all other digits/ wrist. sensation intact. radial pulse intact. Differential diagnosis includes fracture, dislocation, ligament/tendon injury. Plan for xrays. Differential Diagnosis Differential Diagnoses: The differential diagnosis associated with the presentation includes as above. Admission/Observation not indicated. Independent Interpretation I performed an independent interpretation of an: Plain X-Ray Interpretation: xr left 4th digit without fracture Radiology Impression Discussion of test interpretation with radiology: I have reviewed the radiologist's reading. Radiologist Impression: EXAMINATION: XR fourth digit, LEFT HAND CLINICAL INFORMATION: 4th digit injury COMPARISON: None available. TECHNIQUE: PA view of the left hand. Oblique and lateral views fourth digit.. FINDINGS: The phalanges are intact. There is normal alignment. No acute cortical disruption. No subcutaneous emphysema. No metallic or radiopaque foreign body. PA view left hand demonstrates intact metacarpal bones, carpal bones and phalanges with normal alignment. XR/XR finger LT min 2V IMPRESSION: No acute fracture or dislocation. No metallic or radiopaque foreign body. Electronically signed by: José Luis France MD 06/22/2025 10:39 AM EDT External Record Review External record reviewed: Inpatient record Prescription Management I considered prescription management with: Pain Medication Social Determinants Patient?s care significantly limited by Social Determinants of Health including: Other Social Determinant of Health Procedures Orthopedic Splinting/Casting Injury #1: Side: left Upper Extremity Injury Location: finger Upper Extremity Immobilizer: aluminum form splint Critical Care Time Critical Care Time Critical Care Time: No Discharge Plan Discharge Clinical Impression: Finger sprain Patient Disposition: Home, Self-Care Instructions: Finger Sprain (ED) Additional Instructions: You were evaluated in the ED today following an injury to your left ring finger. Your xrays do not demonstrate fracture. You may have a ligament/tendon injury and you need to follow up with the orthopedic doctor. You have been provided with a referral. Call them to establish care. They will not call you. In the meantime, I have splinted your finger. Keep this splint in place until you follow up with them. Change the tape daily. You may take tylenol/motrin at home as needed for pain. Return with any new or worsening symptoms. In the case of an emergency call 911. Prescriptions: No Action doxycycline hyclate 100 mg capsule 100 mg PO BID 7 Days Qty: 14 0RF doxycycline hyclate 100 mg capsule 100 mg PO BID Qty: 20 0RF polymyxin B sulf-trimethoprim 10,000 unit- 1 mg/mL drops 1 drp ophthalmic (eye) Q3H 7 Days Qty: 10 1RF Rx Instructions: while awake; do not exceed 6 doses in 24 hours hydrocortisone 1 % cream 1 appl topical BID PRN (Reason: rash) 14 Days Qty: 28.4 0RF [place] [facility] [place] [facility] [place] Group] Mary Betts MD [Physician, Hand Surgery] Interventions: ED Discharge Assessment Last Done: 06/22/25 11:24 Discharge Date/Time: 06/22/25 11:25 Print Language: Cuban
[2025-06-22 11:24] VITALS: BP 118/70; PULSE 69; RESP 18; TEMP 36.6; O2SAT 98
== END 2025-06-22 11:25 | disposition home or self-care (01) ==
PROVIDERS: Emergency Provider Emergency Medicine
DX: S63.615A Unspecified sprain of left ring finger, initial encounter (principal); X58.XXXA Exposure to other specified factors, initial encounter; Y93.89 Activity, other specified; Y92.9 Unspecified place or not applicable; Y99.9 Unspecified external cause status
CPT/HCPCS: 73140; 99282; 99283

== ENCOUNTER → 2025-06-22 10:09 | Outpatient (BNV) | payer OTHER, SELFPAY | PROVIDERS: Emergency Provider Emergency Medicine; Visit Provider Radiology Diagnostic Radiology | DX: M79.645 Pain in left finger(s) (principal) | CPT/HCPCS: 73140 ==

== ENCOUNTER 2025-07-12 09:26 | Outpatient (REF) | payer OTHER, SELFPAY | END 2025-07-12 09:27 | disposition home or self-care (01) | LOC: HO.HOSX 09:26 | PROVIDERS: Visit Provider Orthopaedic Surgery | DX: Z13.89 Encounter for screening for other disorder (principal) ==